=== PATIENT | male | born 1980 | race Asian ===

== ENCOUNTER 2022-08-07 10:27 | Outpatient (CLI) | payer OTHER ==
[2022-08-07 11:26] VITALS: BP 108/64
--- NOTE | 2022-08-07 11:26 | SLEEP CARE CONSULTATION ---
Information from patient questionnaire entered by Juan A Reid. I have reviewed and concur with the information entered by Juan A Reid. This document represents the service I personally performed and the decisions made by me, Ester Lacey ARNP. History of Present Illness Service Date and Time: 08/07/2022 1027 Reason for Visit: New patient Chief Complaint: reports: Insomnia, Unrefreshed sleep, Snoring, Excessive daytime sleepiness, Fatigue, Frequent awakenings at night Date of Onset: 5YRS Usual bedtime: 9PM; sometimes earlier Time it takes to fall asleep: 30MIN Snores at night: Yes Observed to quit breathing while asleep: Yes Sleeps alone due to snoring: No Number of times waking at night: 5 or more Reasons for waking at night: reports: Gasping for air, Other (UNKNOWN ) Toss, Turn, or Twitch while sleeping: Yes Recalls having dreams: Yes Usually gets out of bed at: 5AM Feels refreshed in the morning: No Morning headache: No Sleepy or fatigued during the day: Yes Ever fallen asleep while driving: Yes (drowsy driving, no accidents) Takes day naps: Yes (unintentional naps, SOMETIMES) Dreams during day naps: No Prior sleep studies: No Additional HPI information: I had the pleasure of seeing TOYIN IBANEZ today regarding the possibility of him having a sleep disorder. His current complaints are snoring, unrefreshed sleep, frequent night awakenings, excessive daytime sleepiness, fatigue and insomnia. He is tired after waking up in the morning. He tries to avoid taking any naps in the daytime but will occasionally fall asleep when talking with his after work. He states he will go to sleep early if he is really tired and wake up a couple hours after falling asleep. He will feel somewhat rested but then he goes back to sleep. He will get up after sleeping 8-9 hours and then not feel as rested. He wakes up frequently after falling asleep but can go back to sleep without much trouble. He states that he quit smoking and reduced his caffeine intake drastically to see if this would help reduce his daytime fatigue but so far it has not. He states he has a history of migraines and takes sumatriptan as needed. He denies waking up with headaches. He denies a family history of sleep disordered breathing but has many family members who snore too. - Parasomnia Symptoms Ever been unable to move upon waking from sleep: Yes Walks in sleep: No Talks in sleep: Yes Ever acted out dreams in sleep: No Ever felt weak in the knees when startled or emotional: Yes Bothered by creepy, crawly, restless sensations in legs: Yes Problems with memory or concentration: No Subjective Initial [place] Sleepiness Scale score: 18 (08/07/22) Past Medical History Past Medical History: reports: Other (OSTEOARTHRITIS; MIGRAINE) Social History The patient's occupation is a AM. Patient is and lives in . Have you smoked in the past 12 months: Yes (1/4 PACK PER DAY ) Cigarettes per day (20/pack): 5 Years of smokin Quit date: 02/2021 Smoking Pack Years: 3.0 Alcohol use: Yes Alcohol amount and frequency: OCCASIONALLY Caffeine use: Yes Caffeine amount and frequency: 3 TIMES PER WEEK Family History Family history of sleep disordered breathing: Yes Family Hx Sleep Apnea: Mother: Snoring, Father: Snoring, Sibling: Snoring Allergies and Home Medications Known drug allergies: No Drug allergies reviewed: Yes (NKDA) Home medication list reviewed: Yes Allergy and home medication list: Medications: Ibuprofen 800 mg, prn Sumatriptan, prn Review of Systems Weight gain over past 5 years: 10 Cardiovascular: reports: leg or foot swelling Respiratory: reports: shortness of breath Gastrointestinal: reports: heartburn, vomitting Ear/Nose/Throat: reports: dry mouth/throat, wisdom teeth removed. denies: tonsillectomy Musculoskeletal: reports: joint pain, joint swelling, muscle pain or cramping Physical Exam Vital signs obtained and entered by: JUAN A Dove MA Blood Pressure: 108/64 (left arm) Cuff size: regular Heart Rate: 68 O2 Saturation: 98 Height: 5 ft 6 in Weight: 160 lb 6.4 oz Body Mass Index: 25.9 BMI Classification: Overweight Neck circumference: 15.5 Nostrils: patent to airflow Mouth and throat: narrow oropharynx Soft palate: normal Hard palate: normal Uvula: normal Uvula visualization: 25% Mallampati Class III Tongue: normal in size Tonsils: small Neck: normal w/o lymphadenopathy or thyromegaly Heart: regular rate and rhythm Lungs: clear bilaterally Impression and Plan 1. Suspected Obstructive Sleep Apnea-Hypopnea Syndrome, as suggested by a history of loud and irregular snoring, observed cessation of breath while asleep, gasping or choking in sleep, frequent awakening during the night, unrefreshed sleep and excessive daytime sleepiness. I recommend proceeding to polysomnography to confirm the diagnosis and to assess severity. If the patient has significant sleep disordered breathing, a manual CPAP titration study will also be performed to find the optimal treatment pressure. I informed the patient of what the sleep studies involve and after some discussion, obtained agreement to proceed. The pathophysiology of obstructive sleep apnea-hypopnea syndrome was discussed with the patient and health risks of cardiovascular and cerebrovascular disease if not treated. Risks of drowsy driving discussed in detail and patient advised to avoid long distance driving and to pulley mortiser operator at the first sign of drowsiness. Patient agreed to plan. * Schedule polysomnography * Avoid long distance driving or driving when feeling sleepy. * Avoid alcohol, sedative and muscle relaxant around bedtime. * Attempt to lose weight. * Review instructions provided by trained office staff on how to prepare for the sleep study. * Return for follow-up after sleep study completed. Counseling Topics: Weight loss health impact Visit Type: In Office Time Spent with Patient (minutes): 30 Provider Statement: I spent 100% of the Face to Face Visit with the patient with greater than 50% spent counseling the patient and coordination of care.
== END 2022-08-07 10:28 | disposition home or self-care (01) ==
LOC: SC 10:27
PROVIDERS: ATTEND Nurse Practitioner Family
DX: R06.83 Snoring (principal); G47.8 Other sleep disorders; R06.81 Apnea, not elsewhere classified; G47.10 Hypersomnia, unspecified; R53.83 Other fatigue; E66.3 Overweight; Z68.25 Body mass index [BMI] 25.0-25.9, adult; Z87.891 Personal history of nicotine dependence
CPT/HCPCS: 99203; 99212

== ENCOUNTER 2022-08-31 12:20 | Outpatient (CLI) | payer OTHER | END 2022-08-31 12:21 | disposition home or self-care (01) | LOC: SC 12:20 | PROVIDERS: ATTEND Nurse Practitioner Family | DX: Z53.9 Procedure and treatment not carried out, unspecified reason (principal) | CPT/HCPCS: 95806 ==

== ENCOUNTER 2022-09-04 14:30 | Outpatient (CLI) | payer OTHER | END 2022-09-04 14:31 | disposition home or self-care (01) | LOC: SC 14:30 | PROVIDERS: ATTEND Nurse Practitioner Family | DX: R06.83 Snoring (principal); G47.8 Other sleep disorders; R06.81 Apnea, not elsewhere classified; G47.10 Hypersomnia, unspecified; R53.83 Other fatigue | CPT/HCPCS: 95806 ==

== ENCOUNTER 2022-09-25 13:36 | Outpatient (CLI) | payer OTHER ==
[2022-09-25 14:09] VITALS: BP 118/72
--- NOTE | 2022-09-25 14:09 | SLEEP CARE CONSULTATION ---
Information from patient questionnaire entered by Sisi Reid. I have reviewed and concur with the information entered by Sisi Reid. This document represents the service I personally performed and the decisions made by , Ester Lacey ARNP. History of Present Illness Service Date and Time: 09/25/2022 1336 Initial [place] Sleepiness Scale score: 18 (08/07/22) Current [place] Sleepiness Scale score: 21 (09/25/2022) Additional HPI information: TOYIN IBANEZ returns for follow up and results of the recently performed home sleep study. The patient was informed of the following findings: No significant sleep disordered breathing with an average AHI of 0.6 and jazmyn oxygen saturation of 89%. I explained the pathophysiology behind obstructive sleep apnea. Patient does not have sleep apnea and was advised how weight gain could increase the risk of developing sleep apnea in the future. Patient has moderate snoring. Snoring can be reduced by weight loss. Weight loss is best achieved with diet consult. Patient instructed to contact PCP for referral. Snoring can also be treated with an oral appliance from a dentist. Advised to check insurance coverage. In addition, an ENT evaluation can be do to see if other treatment is indicated. Patient does not drink alcohol. Patient was cautioned about risks of drowsy driving until sleepiness symptoms resolve. Sleep Study - Results Type of Sleep Study: Home sleep study (COMPLETED 09/04/2022) Prior sleep studies: No Polysomnography/Home Sleep Study results: Physician Impression: The quality of the study is good. The length of the study is adequate (> 240 minutes). Please also see the tabulated and graphic data. 1. No significant sleep disordered breathing, with an AHI of 0.6/hr and jazmyn SaO2 of 89%. During the study, the patient had 1 apnea (1 obstructive, 0 central, 0 mixed) and 4 hypopneas. The longest episode lasted 69.0 seconds. The patient only slept supine during this study (supine AHI was 0.6 and non-supine, 0.00). Allergies and Home Medications Drug allergies reviewed: Yes (nkda) Home medication list reviewed: Yes (no changes) Review of Systems Review of systems same as previous: No (Achilles tendon pain) Physical Exam Vital signs obtained and entered by: SISI Dove MA Blood Pressure: 118/72 (left arm) Cuff size: regular Heart Rate: 76 O2 Saturation: 97 Height: 5 ft 6 in Weight: 164 lb 6.4 oz Body Mass Index: 26.5 BMI Classification: Overweight Impression and Plan 1. Suspected Obstructive Sleep Apnea-Hypopnea Syndrome, as suggested by a history of loud and irregular snoring, observed cessation of breath while asleep, gasping or choking in sleep, morning headache, frequent awakening during the night, unrefreshed sleep, cognitive impairment, and excessive daytime sleepiness. Patient did not sleep non-supine during the study and does not feel this was a good representation of his normal nights of sleep. I recommend proceeding to polysomnography to confirm the diagnosis and to assess severity. I obtained agreement to proceed. The pathophysiology of obstructive sleep apnea- hypopnea syndrome was discussed with the patient and health risks of cardiovascular and cerebrovascular disease if not treated. Risks of drowsy driving discussed in detail and patient advised to avoid long distance driving and to chain puller at the first sign of drowsiness. Patient agreed to plan. * Schedule polysomnography * Avoid long distance driving or driving when feeling sleepy. * Review instructions provided by trained office staff on how to prepare for the sleep study. * Return for follow-up after sleep study completed. Counseling Topics: Weight loss health impact Visit Type: In Office Provider Statement: I spent 100% of the Face to Face Visit with the patient with greater than 50% spent counseling the patient and coordination of care.
== END 2022-09-25 13:37 | disposition home or self-care (01) ==
LOC: SC 13:36
PROVIDERS: ATTEND Nurse Practitioner Family
DX: R06.83 Snoring (principal); R06.81 Apnea, not elsewhere classified; R51.9 Headache, unspecified; G47.8 Other sleep disorders; R41.89 Other symptoms and signs involving cognitive functions and awareness; G47.10 Hypersomnia, unspecified
CPT/HCPCS: 99212; 99213

== ENCOUNTER 2022-10-08 20:43 | Outpatient (CLI) | payer OTHER | END 2022-10-08 20:44 | disposition home or self-care (01) | LOC: SC 20:43 | PROVIDERS: ATTEND Nurse Practitioner Family | DX: R06.83 Snoring (principal); G47.8 Other sleep disorders; R06.81 Apnea, not elsewhere classified; R51.9 Headache, unspecified; G47.10 Hypersomnia, unspecified | CPT/HCPCS: 95810 ==

== ENCOUNTER 2022-10-26 10:21 | Outpatient (CLI) | payer OTHER ==
--- NOTE | 2022-10-26 09:49 | SLEEP CARE CONSULTATION ---
Information from patient questionnaire entered by Sisi Reid. I have reviewed and concur with the information entered by Sisi Reid. This document represents the service I personally performed and the decisions made by , Ester Lacey ARNP. History of Present Illness Service Date and Time: 10/26/2022 0940 Initial [place] Sleepiness Scale score: 18 (08/07/22) Current [place] Sleepiness Scale score: 18 (10/26/22) Additional HPI information: TOYIN IBANEZ returns via video telehealth visit for follow up and results of the recently performed polysomnography. The patient was informed of the following findings: No significant sleep disordered breathing with an average AHI of 2.1 and jazmyn oxygen saturation of 84%. I explained the pathophysiology behind obstructive sleep apnea. Patient does not have sleep apnea and was advised how weight gain could increase the risk of developing sleep apnea in the future. I strongly encouraged the patient to lose weight. Patient has light to moderate snoring. Snoring can be reduced by weight loss. Weight loss is best achieved with diet consult. Patient instructed to contact PCP for referral. Snoring can also be treated with an oral appliance from a dentist. Advised to check insurance coverage. In addition, an ENT evaluation can be do to see if other treatment is indicated. Patient does not drink alcohol. Patient was cautioned about risks of drowsy driving until sleepiness symptoms resolve. Patient denies drowsy driving. Sleep Study - Results Type of Sleep Study: Home sleep study (COMPLETED 10/08/22) Prior sleep studies: No Polysomnography/Home Sleep Study results: IMPRESSION: The quality of the study is good. The patient had normal sleep efficiency. The sleep architecture was relatively normal considering the first-night effect. Respiratory monitoring showed no significant sleep disordered breathing (AHI = 2.1) or hypoxia (jazmyn oxygen saturation of 84% and only 0.13% to the total sleep time was spent with oxygen saturation below 90%). The few respiratory events occurred almost exclusively during supine REM sleep (supine AHI = 2.4; non-supine = 0.88). Snore was infrequent and light to moderate in intensity. There was no significant periodic leg movement of sleep. Cardiac rhythm was normal sinus rhythm without significant arrhythmia. No abnormal behavior (parasomnia) observed during the night. Allergies and Home Medications Drug allergies reviewed: Yes (NKDA) Home medication list reviewed: Yes (no changes) Allergy and home medication list: Allergies No Known Drug Allergies Allergy (Verified 09/25/22 13:48) Review of Systems Review of systems same as previous: No (biopsy of cyst) Physical Exam Vital signs obtained and entered by: VIA PHONE Height: 5 ft 5 in (PER PT ) Weight: 150 lb (PER PT) Body Mass Index: 25.0 BMI Classification: Overweight Impression and Plan Snoring but no significant sleep disordered breathing. Patient still complains of daytime fatigue and not waking up feeling rested. I advised him to follow up with his PCP for further evaluation of his fatigue. He voiced understanding. Patient advised that often weight loss will reduce snoring as well as apnea risk. An oral appliance can also be used for snoring. This would require a dental consultation. Patient cautioned not to use other online appliances as can cause bite issues. A list of accredited dentists in [facility] and one local dentist who makes oral appliances is available in office. Patient is advised to check if insurance will cover. An ENT consult can also be helpful to determine if any other treatment is an option. * Attempt to lose weight * follow up with PCP for further evaluation of his daytime fatigue * Return as needed for follow up. Counseling Topics: Weight loss health impact Follow up with: PCP Visit Type: Telehealth Video Video Type: Doximity Patient Location: Home Location of Provider: Office Patient agrees and consents to this telehealth visit type: Yes Patient agrees to have their insurance billed: Yes Time Spent with Patient (minutes): 12 Provider Statement: I spent 100% of the Telehealth Video Call with the patient with greater than 50% spent counseling the patient and coordination of care.
== END 2022-10-26 10:22 | disposition home or self-care (01) ==
LOC: SC 10:21
PROVIDERS: ATTEND Nurse Practitioner Family
DX: R06.83 Snoring (principal)

== ENCOUNTER 2024-01-22 12:57 | Outpatient (CLI) | payer OTHER ==
--- NOTE | 2024-01-22 13:27 | Sleep Patient Instructions ---
Sleep Center Visit Summary - Patient Visit Information Reason for Visit: Follow-up - Patient Instructions Instructions Attached: Sleep Study Additional Instructions: You will be completing a sleep study, either an in-lab polysomnography (PSG) or home sleep study (HST). You will follow-up in the sleep care office after the sleep study is completed to hear the results and talk about therapy, if needed. You will be called by our office staff to schedule this appointment, but you may contact us with any questions. - Clinic Information Contact: [facility] [address] [place] [id number] [email or web address] T: [phone]
--- NOTE | 2024-01-22 13:29 | SLEEP CARE CONSULTATION ---
Information from patient questionnaire entered by Juan A Reid. I have reviewed and concur with the information entered by Juan A Reid. This document represents the service I personally performed and the decisions made by me, Ester Lacey ARNP. History of Present Illness Service Date and Time: 01/22/2024 1257 AHI: 2.1 (10/08/2022) Reason for follow up: annual (LAST SEEN 10/2022 NO CPAP) Prior sleep studies: No Type of Sleep Study: Polysomnography (COMPLETED 10/08/22) HPI additional information: I had the pleasure of seeing TOYIN IBANEZ today regarding the possibility of him having a sleep disorder. His current complaints are snoring, excessive daytime sleepiness, unrefreshed sleep, waking up gasping or choking in his sleep and morning headaches. The patient tells me that he normally goes to bed around 10 pm, and it takes him approximately 2 hours to fall asleep, sometimes sooner. He has been told that he snores loudly and irregularly at night. He has not been observed to stop breathing in his sleep. He can recall waking up on the average of 3 times during the night. Most of the time he wakes up because of unknown reasons or nightmares. He has occasionally awakened for choking, and having to gasp for air. There is a lot of tossing and turning in his sleep. Generally he can recall having dreams. He usually wakes up at 08-1000 AM and does not feel refreshed. He usually does have a morning headache, 2-3 times a week. He says the headaches resolve in about an hour. During the day he complains of feeling sleepy and fatigued. He has never fallen asleep while driving nor has any accident due to sleepiness. He usually naps about 2 times a week when he is taking care of his baby for about 1-2 hours. If he naps, upon falling asleep during the day he admits to having vivid dreams. There is no somniloquy (sleep talking) or somnambulism (sleep walking). He has never experienced sleep paralysis, cataplexy, or symptoms of restless leg syndrome. He reports having impaired concentration during the day. Sleep Study - Results Type of Sleep Study: Home sleep study (COMPLETED 10/08/22) Prior sleep studies: No Subjective Initial [place] Sleepiness Scale score: 18 (08/07/22) Current [place] Sleepiness Scale score: 18 (01/22/24) Allergies and Home Medications Known drug allergies: No Drug allergies reviewed: Yes Home medication list reviewed: Yes (no changes) Allergy and home medication list: Allergies No Known Drug Allergies Allergy (Verified 01/20/24 10:20) Review of Systems Review of systems same as previous: Yes (NO CHANGE) Physical Exam Vital signs obtained and entered by: JUAN A Dove MA Blood Pressure: 121/90 (RIGHT ARM) Cuff size: regular Heart Rate: 88 O2 Saturation: 97 Height: 5 ft 5 in (PER PT ) Weight: 170 lb Weight change since last visit: 20 lb gain Body Mass Index: 28.3 BMI Classification: Overweight Impression and Plan 1. Suspected Obstructive Sleep Apnea-Hypopnea Syndrome, as previously diagnosed.suggested by a history of loud and irregular snoring, gasping or choking in sleep, morning headache, unrefreshed sleep, and excessive daytime sleepiness. Narrow oropharynx and obesity are common predisposing factors for obstructive sleep apnea-hypopnea syndrome. I recommend proceeding to polysomnography to confirm the diagnosis and to assess severity. If the patient has significant sleep disordered breathing, a manual CPAP titration study will also be performed to find the optimal treatment pressure. I informed the patient of what the sleep studies involve and after some discussion, obtained agreement to proceed. The pathophysiology of obstructive sleep apnea-hypopnea syndrome was discussed with the patient and health risks of cardiovascular and cerebrovascular disease if not treated. Risks of drowsy driving discussed in detail and patient advised to avoid long distance driving and to stock puller at the first sign of drowsiness. Patient agreed to plan. 2. Overweight, unspecified. Currently patients BMI is 28.3. Obesity increases the risk of apnea, CPAP pressure requirements and overall health risks especially cardiovascular and diabetes. Thus patient is advised to lose weight. * Schedule polysomnography * Avoid long distance driving or driving when feeling sleepy. * Avoid alcohol, sedative and muscle relaxant around bedtime. * Attempt to lose weight. * Review instructions provided by trained office staff on how to prepare for the sleep study. * Return for follow-up after sleep study completed. Counseling Topics: Weight loss health impact Follow up with Sleep Care in: other (to review results of sleep study) Plan: PSG Visit Type: In Office Time Spent with Patient (minutes): 20 Provider Statement: I spent 100% of the Face to Face Visit with the patient with greater than 50% spent counseling the patient and coordination of care.
[2024-01-22 13:38] VITALS: BP 121/90; O2SAT 97
== END 2024-01-22 12:58 | disposition home or self-care (01) ==
LOC: SC 12:57
PROVIDERS: ATTEND Nurse Practitioner Family
DX: G47.10 Hypersomnia, unspecified (principal); R06.83 Snoring; R51.9 Headache, unspecified; G47.8 Other sleep disorders
CPT/HCPCS: 99212; 99213

== ENCOUNTER 2024-02-19 20:30 | Outpatient (CLI) | payer OTHER | END 2024-02-19 20:31 | disposition home or self-care (01) | LOC: SC 20:30 | PROVIDERS: ATTEND Nurse Practitioner Family | DX: G47.33 Obstructive sleep apnea (adult) (pediatric) (principal) | CPT/HCPCS: 95810 ==

== ENCOUNTER 2024-03-18 13:34 | Outpatient (CLI) | payer OTHER ==
--- NOTE | 2024-03-18 14:07 | Sleep Patient Instructions ---
Sleep Center Visit Summary - Patient Visit Information Reason for Visit: Sleep study follow-up - Patient Instructions Instructions Attached: CPAP Additional Instructions: You are being started on CPAP therapy with pressure setting at 4-15 cmH2O. You will need to call the sleep care office to set up your follow up once you have your CPAP machine to check compliance and response to therapy at that time. You may call the office with any concerns about pressure feeling too low or too much for adjustment, if needed. You should contact DME supplier for any questions or concerns about mask or equipment. Please call office to schedule a follow up appointment in the sleep care office one month after obtaining new device. - Clinic Information Contact: [facility] [address] [place] [address] [email or web address] T: [phone]
--- NOTE | 2024-03-18 14:10 | SLEEP CARE CONSULTATION ---
Information from patient questionnaire entered by Sisi Reid. I have reviewed and concur with the information entered by Sisi Reid. This document represents the service I personally performed and the decisions made by , Ester Lacey ARNP. History of Present Illness Service Date and Time: 03/18/2024 1334 Initial [place] Sleepiness Scale score: 18 (08/07/22) Current [place] Sleepiness Scale score: 22 (03/18/24) Additional HPI information: TOYIN IBANEZ returns for follow up and results of the recently performed polysomnography. The sleep study showed mild obstructive sleep apnea with an average AHI of 10.2 and jazmyn oxygen saturation of 80%. I explained the pathophysiology behind obstructive sleep apnea. We then spent quite a bit of time discussing different treatment options. For mild obstructive sleep apnea, surgery and oral appliance are alternatives to nasal CPAP therapy but in moderate or severe cases, nasal CPAP is the most effective and reliable treatment. I reviewed the impact of weight changes on sleep apnea and strongly recommended losing weight. After some discussion, the patient opted to go with the nasal CPAP therapy. Nasal autoCPAP set at 4-15 cmH20 will be ordered with rationale explained. A manual titration study will be ordered if unable to find optimal pressure with office adjustments. I explained how CPAP machine works and what to expect when using the machine. Using CPAP every night in order to get used to it was emphasized. Patient advised to put CPAP mask on before getting into bed so as not to fall asleep without CPAP. To assist acclimation to CPAP use, it could also be used for a short time during day while reading or watching TV. The patient was instructed to call the CPAP supplier to discuss any mechanical problem that may occur. If the mask given is uncomfortable or is difficult to keep on through the night even with adjustment, contact the CPAP supplier as many will replace with another mask style if notified before 30 days. If snoring or perceives is not getting enough air or too much air from the machine, notify this office. Patient counseled not drink alcohol less than 4 hours before bedtime as it can increase snoring and apnea. Patient was cautioned about risks of drowsy driving until sleepiness symptoms resolve. Sleep Study - Results Type of Sleep Study: Polysomnography (COMPLETED 10/08/22 COMPLETED 02/19/24) Prior sleep studies: No Polysomnography/Home Sleep Study results: IMPRESSION: The quality of the study is good. The patient had normal sleep efficiency. The sleep architecture was abnormal for sleep fragmentation and reduced amount of time spent in slow wave sleep (N3). Respiratory monitoring showed mild obstructive sleep apnea-hypopnea (AHI = 10.2) associated with frequent arousals, oxyhemoglobin desaturation and mild hypoxia (jazmyn oxygen saturation of 80%). The respiratory events occurred mainly during REM sleep. The patient only slept supine during this study (supine AHI = 10.3; non-supine = 0.00). Snore was light to loud in intensity. There was no significant periodic leg movement of sleep. Cardiac rhythm was normal sinus rhythm without significant arrhythmia. No abnormal behavior (parasomnia) observed during the night. Allergies and Home Medications Known drug allergies: No Drug allergies reviewed: Yes Home medication list reviewed: Yes (Proctofoam; Omeprazole) Allergy and home medication list: Allergies No Known Drug Allergies Allergy (Verified 03/12/24 12:48) Review of Systems Review of systems same as previous: Yes (NO CHANGE) Physical Exam Vital signs obtained and entered by: SISI Dove MA Blood Pressure: 121/78 (RIGHT ARM) Cuff size: regular Heart Rate: 79 O2 Saturation: 98 Height: 5 ft 5 in (PER PT ) Weight: 167 lb 9.6 oz Body Mass Index: 27.8 BMI Classification: Overweight Impression and Plan 1. Obstructive Sleep Apnea-Hypopnea Syndrome, mild, with lowest oxygen saturation of 80%. Obviously this is the cause of the patients symptoms of unrefreshed sleep, and excessive daytime sleepiness. Positive pressure therapy could benefit migraines. As mentioned above, the patient will be started on nasal autoCPAP therapy with pressure set at 4-15 cmH2O. A manual titration study will be completed if unable to find optimal treatment pressure with office adjustments. Compliance guidelines also reviewed. A copy of compliance guidelines will be given for reference at check out. 2. Overweight, unspecified. Currently patients BMI is 27.8. Obesity increases the risk of apnea, CPAP pressure requirements and overall health risks especially cardiovascular and diabetes. Thus patient is advised to try to lose weight. * Nasal auto CPAP therapy, pressure at 4-15 cm H2O. * Attempt to lose weight. * Avoid alcohol consumption near bedtime. * Avoid supine sleep until using CPAP. * The patient is again cautioned about driving until sleepiness completely resolves. * Return one month after CPAP obtained. I will assess response to therapy and compliance at that time. Counseling Topics: Weight loss health impact Prescriptions: Auto CPAP Plan: start CPAP and compliance follow up Visit Type: In Office Time Spent with Patient (minutes): 20 Provider Statement: I spent 100% of the Face to Face Visit with the patient with greater than 50% spent counseling the patient and coordination of care.
[2024-03-18 14:13] VITALS: BP 121/78; O2SAT 98
== END 2024-03-18 13:35 | disposition home or self-care (01) ==
LOC: SC 13:34
PROVIDERS: ATTEND Nurse Practitioner Family
DX: G47.33 Obstructive sleep apnea (adult) (pediatric) (principal); E66.3 Overweight; Z68.27 Body mass index [BMI] 27.0-27.9, adult
CPT/HCPCS: 99212; 99213